=== PATIENT | male | born 1975 | race American Indian/Alaskan Native ===

== ENCOUNTER 2017-06-22 00:52 | Emergency (ER) | payer SELFPAY ==
[2017-06-22 01:25] VITALS: BP 186/116
[2017-06-22] MEDS ORDERED: ASPIRIN PO ONE (01:25)
[2017-06-22 01:49] LABS: Basophils # (Auto) 0.1 K/mm3 (0.0-0.1); Basophils % (Auto) 0.6 % (0.0-1.8); Eosinophils # (Auto) 0.2 K/mm3 (0.0-0.4); Eosinophils % (Auto) 1.8 % (0.0-4.3); Hematocrit 47.9 % (35.5-45.6); Hemoglobin 16.3 gm/dl (11.8-15.2); Lymphocytes # (Auto) 3.6 K/mm3 (1.2-5.4); Lymphocytes % (Auto) 38.1 % (13.4-35.0); Mean Corpuscular HGB Conc 34 % (32-34); Mean Corpuscular Hemoglobin 31 pg (28-32); Mean Corpuscular Volume 90 fl (84-94); Monocytes # (Auto) 0.5 K/mm3 (0.0-0.8); Monocytes % (Auto) 5.7 % (0.0-7.3); Platelet Count 261 K/mm3 (140-440); Red Blood Count 5.35 M/mm3 (3.65-5.03); Red Cell Distribution Width 17.9 % (13.2-15.2)
[2017-06-22] MEDS ORDERED: HCTZ ONE (01:55)
[2017-06-22] MEDS ORDERED: HCTZ PO ONE (01:59)
--- NOTE | 2017-06-22 02:00 | XRay Report ---
FINAL REPORT EXAM: XR CHEST ROUTINE 2V HISTORY: Chest pain and dry cough COMPARISON: None available. FINDINGS:: Frontal and lateral views of the chest obtained. Cardiac silhouette is within normal limits. No focal consolidation or effusion. No pneumothorax. Visualized bony thorax is grossly intact. IMPRESSION:: No acute findings.
[2017-06-22 02:27] LABS: BUN/Creatinine Ratio 16; Blood Urea Nitrogen 14 mg/dL (9-20); Calcium 8.8 mg/dL (8.4-10.2); Hemolysis Index 33
== END 2017-06-22 07:25 | disposition left against medical advice (07) ==
LOC: ED 00:52
DX: R07.9 Chest pain, unspecified (principal); H92.01 Otalgia, right ear; Z53.21 Procedure and treatment not carried out due to patient leaving prior to being seen by health care provider
CPT/HCPCS: 36415; 71046; 80048; 84484; 85025; 93005; 93010

== ENCOUNTER 2021-01-02 12:50 | Emergency (ER) | payer SELFPAY ==
--- NOTE | 2021-01-02 13:02 | Emergency Department Report ---
ED General Adult HPI - General Stated complaint: RAPID HEART RATE Time Seen by Provider: 01/02/21 13:00 - History of Present Illness Initial comments: Patient came in by EMS secondary to chest pain and palpitations. He was at home. He had recently been changed from one blood pressure medication to a new one. He took the first dose of his new medication today. Approximately 1 to 2 hours later, he developed palpitations. He described it as his heart was racing, skipping beats, missed beats, and pounding. He complained of a right- sided chest pain. He did not have left-sided chest pain. He states that he was short of breath and sweaty. He had never been on this medication before. There is no history of recent travel or trauma. Has had no cough or congestion. No vomiting or diarrhea. He has had no other change in medication. Currently, he still feels as though his heart is beating irregularly. - Related Data Allergies Allergy/AdvReac Type Severity Reaction Status Date / Time No Known Allergies Allergy Verified 06/22/17 01:59 ED Review of Systems ROS: Stated complaint: RAPID HEART RATE Other details as noted in HPI Comment: All other systems reviewed and negative Constitutional: denies: fever Eyes: denies: eye pain ENT: denies: throat pain Respiratory: denies: cough Cardiovascular: as per HPI Endocrine: denies: unexplained weight loss Gastrointestinal: denies: abdominal pain Genitourinary: denies: dysuria Musculoskeletal: denies: back pain Skin: denies: rash Neurological: denies: headache Hematological/Lymphatic: denies: easy bruising ED Past Medical Hx - Past Medical History Hx Hypertension: Yes - Family History Family history: hypertension - Social History Smoking Status: Current Every Day Smoker (We discussed tobacco cessation x3 minutes) ED Physical Exam - General Limitations: No Limitations ED Course Vital Signs 01/02/21 01/02/21 13:13 13:15 Blood Pressure 134/94 O2 Sat by Pulse 100 97 Oximetry - Reevaluation(s) Reevaluation #1: 01/02/21 13:01 EMS was met. IV labs were ordered. Reevaluation #2: 01/02/21 13:35 Patient has decided he would like to sign out AGAINST MEDICAL ADVICE. He states that his regular physicians and other physicians are at [facility]. He states that he would like to leave and go to [facility]. His spoke to this physicians. I have discussed the risks, benefits, and alternatives with him. He verbalizes understanding. He has the capacity to make this decision at this time. He elects to sign out AGAINST MEDICAL ADVICE. He was invited to return at any point. ED Medical Decision Making - EKG Data 01/02/21 13:36 Prehospital EKG was interpreted. It was obtained at 12:19 PM today. This showed a sinus tachycardia. The MS was normal. QRS was normal at 0.09. QT corrected was normal at 399. Patient had ST depression in 2 as well as aVF. There appear to be T wave inversion versus ST depression in 3. There was some LVH with hypertrophy and repull. This had been reviewed by cardiology. The code STEMI had been canceled. - Medical Decision Making Patient presents with palpitations and chest pain. He is elected to sign out AGAINST MEDICAL ADVICE. We have not completed the work-up and he is aware of this at this time. Critical Care Time: No Critical care attestation.: If time is entered above; I have spent that time in minutes in the direct care of this critically ill patient, excluding procedure time. ED Disposition Clinical Impression: Palpitations, Shortness of breath, Right-sided chest pain Disposition: 07 LEFT AGAINST MEDICAL ADVICE Is pt being admited?: No Condition: Stable Instructions: Nonspecific Chest Pain, Adult Additional Instructions: Go directly to your doctors. Return if you change your mind about being seen. Referrals: PRIMARY CARE, [Referring] - ANIKET Forms: AMA Form
[2021-01-02 13:25] VITALS: BP 134/94
== END 2021-01-02 13:35 | disposition left against medical advice (07) ==
LOC: ED 12:50
DX: R00.2 Palpitations (principal); R06.02 Shortness of breath; R07.89 Other chest pain; F17.200 Nicotine dependence, unspecified, uncomplicated; I10 Essential (primary) hypertension
CPT/HCPCS: 99283